=== PATIENT | female | born 1955 | race Caucasian/White ===

== ENCOUNTER 2017-06-13 18:55 | Emergency (ER) | payer OTHER ==
[2017-06-13 19:13] VITALS: PULSE 58; RESP 16; TEMP 97.9; O2SAT 98
[2017-06-13] MEDS ORDERED: AMOXICILLIN/CLAVULANATE POT 875/125 MG TAB PO ONE (19:40)
--- NOTE | 2017-06-13 19:40 | EDPHY ---
H & P Time Seen by Provider: 06/13/17 19:20 HPI/ROS: CHIEF COMPLAINT: Cat bite HISTORY OF PRESENT ILLNESS: The patient is a 61-year-old female who was bit by her cat on her right hand earlier this morning. She was playing with the cat when it bit her. She also got a couple of cat scratches on her right arm. She has noticed mild redness. There is no significant pain. No fevers or chills. She has had a previous infection from a cat bite. REVIEW OF SYSTEMS: My complete review of systems is negative except as mentioned in the HPI. Past Medical/Surgical History: Includes hypertension Smoking Status: Former smoker Physical Exam: Vitals noted General Appearance: Alert and no distress. Head: Pupils equal. Normal. Respiratory: No respiratory distress. Cardiac: regular rate and rhythm. Extremities: the patient has small puncture wound over her 5th metacarpal on the dorsal side. There is small surrounding erythema. No streaking up the hand or arm. Skin: No rashes or lesions. Neuro: Alert. Normal mood and affect. Constitutional: Initial Vital Signs Temperature (C) 36.6 C 06/13/17 19:08 Heart Rate 58 L 06/13/17 19:08 Respiratory Rate 16 06/13/17 19:08 O2 Sat (%) 98 06/13/17 19:08 O2 Delivery Mode Room Air Allergies/Adverse Reactions: No Known Allergies Allergy (Unverified 06/13/17 19:07) Home Medications: Medication Instructions Recorded Amoxicillin/Clavulanate Pot 875 mg PO BID 10 Days tab 06/13/17 [Augmentin 875 mg tab] Htn Med 06/13/17 Metoprolol ER-Hctz 100-12.5 mg 06/13/17 Temazepam 06/13/17 Medical Decision Making ED Course/Re-evaluation: In the emergency department I discussed possible etiologies with the patient. I answered all her questions. She is given warnings prior to leaving. Differential Diagnosis: My differential includes but is not limited to cellulitis, abscess, foreign body Departure - Departure Disposition: Home, Routine, Self-Care Clinical Impression: Cat bite Qualifiers: Encounter type: initial encounter Qualified Code(s): W55.01XA - Bitten by cat, initial encounter Condition: Good Instructions: Animal Bite (ED) Additional Instructions: Take your entire course of antibiotics. Return with worsening redness, increased pain or any other concerns. Referrals: Branden Mercedes DO [Primary Care Provider] - 3-4 days, if not improved Prescriptions: Amoxicillin/Clavulanate Pot [Augmentin 875 mg tab] 875 mg PO BID 10 Days tab
== END 2017-06-13 20:38 | disposition home or self-care (01) ==
DX: S61.451A Open bite of right hand, initial encounter (principal); I10 Essential (primary) hypertension; Z87.891 Personal history of nicotine dependence; W55.01XA Bitten by cat, initial encounter; Y99.8 Other external cause status; Y93.89 Activity, other specified

== ENCOUNTER → 2017-08-11 | Outpatient (CLI) | payer OTHER | LOC: FIMAGING 09:32 | PROVIDERS: ATTEND Physician Assistant Medical | DX: N63.10 Unspecified lump in the right breast, unspecified quadrant (principal); M85.80 Other specified disorders of bone density and structure, unspecified site | CPT/HCPCS: G0204 ==